=== PATIENT | male | born 1990 | race Caucasian/White ===

== ENCOUNTER 2016-08-25 09:29 | Emergency (ER) | payer MEDICARE | END 2016-08-25 10:35 | disposition home or self-care (01) | LOC: ER1 09:29 | DX: L03.032 Cellulitis of left toe (principal); F17.210 Nicotine dependence, cigarettes, uncomplicated; Z88.0 Allergy status to penicillin | CPT/HCPCS: 99283 ==

== ENCOUNTER 2021-12-03 20:35 | Emergency (ER) | payer OTHER ==
[~2021-12-03 20:35] MED LIST: BACTROBAN OINT22 GM EXT; CLEOCIN HCL300 MG PO; FLEXERIL 10 MG10 MG PO; MEDROL4 MG PO; NORCO 5-325 TA1 EACH PO
[2021-12-03 20:53] LABS: HEMOGLOBIN 15.1 gm/dl (14.0-17.5); RED BLOOD COUNT 4.83 M/UL (4.20-5.50); WHITE BLOOD COUNT 12.5 K/UL (4.5-11.0)
[2021-12-03 21:18] LABS: BUN/CREATININE RATIO 17 (0-10)
== END 2021-12-04 02:37 | disposition home or self-care (01) ==
LOC: ER1 20:35
PROVIDERS: Family Medicine
DX: R07.89 Other chest pain (principal); R10.10 Upper abdominal pain, unspecified; G89.29 Other chronic pain; Z88.0 Allergy status to penicillin
CPT/HCPCS: 71045; 80053; 82550; 82553; 84484; 85025; 93005; 99285

== ENCOUNTER 2021-12-13 18:27 | Emergency (ER) | payer OTHER ==
[2021-12-13 19:34] LABS: HEMOGLOBIN 15.4 gm/dl (14.0-17.5); WHITE BLOOD COUNT 8.7 K/UL (4.5-11.0)
[2021-12-13 20:07] LABS: BUN/CREATININE RATIO 15 (0-10)
== END 2021-12-13 21:35 | disposition home or self-care (01) ==
LOC: ER1 18:27
PROVIDERS: Family Medicine
DX: R10.32 Left lower quadrant pain (principal); R11.0 Nausea; R10.814 Left lower quadrant abdominal tenderness
CPT/HCPCS: 80053; 81001; 82150; 83605; 83690; 85025; 96374; 96375; 99284; J1885; J2405; Q9967